=== PATIENT | male | born 1950 | race Caucasian/White ===

== ENCOUNTER 2021-12-10 04:27 | Day surgery (SDC) | payer OTHER ==
[2021-12-07 12:54] VITALS: BMI 24.3
[2021-12-10 15:08] VITALS: BP 140/80; PULSE 54; TEMP 97.7
== END 2021-12-10 15:10 | disposition home or self-care (01) ==
LOC: JASU-SURG 04:27
PROVIDERS: ATTEND Urology
PROC: 0TF4XZZ Fragmentation in Left Kidney Pelvis, External Approach (ICD-10-PCS; principal; 2021-12-10 13:00)
DX: N20.0 Calculus of kidney (principal)

== ENCOUNTER 2022-05-13 03:50 | Day surgery (SDC) | payer OTHER ==
[2022-05-10 16:04] VITALS: BMI 25.4
[2022-05-13] MEDS ORDERED: MIDAZOLAM HCL 2 MG/2 ML SINGLE DOSE VIAL ONE (12:10)
[2022-05-13] MEDS ORDERED: PROPOFOL 20 ML ONE ×2 (12:10→15:05)
[2022-05-13 13:41] VITALS: BP 129/66; PULSE 58; RESP 18; TEMP 98.4
== END 2022-05-13 13:40 | disposition home or self-care (01) ==
LOC: JASU-SURG 03:50
PROVIDERS: ATTEND Urology
PROC: 0TF3XZZ Fragmentation in Right Kidney Pelvis, External Approach (ICD-10-PCS; principal; 2022-05-13 11:30)
DX: N20.0 Calculus of kidney (principal)

== ENCOUNTER 2022-05-30 04:27 | Day surgery (SDC) | payer OTHER ==
[2022-05-28 14:05] VITALS: BMI 24.9
[2022-05-30 11:54] VITALS: BP 103/65; PULSE 51; RESP 17; TEMP 98
== END 2022-05-30 11:54 | disposition home or self-care (01) ==
LOC: JASU-ENDO 04:27
PROVIDERS: ATTEND Internal Medicine Gastroenterology
PROC: 0DB78ZX Excision of Stomach, Pylorus, Via Natural or Artificial Opening Endoscopic, Diagnostic (ICD-10-PCS; 2022-05-30)
PROC: 0DB68ZX Excision of Stomach, Via Natural or Artificial Opening Endoscopic, Diagnostic (ICD-10-PCS; 2022-05-30)
PROC: 0DB98ZX Excision of Duodenum, Via Natural or Artificial Opening Endoscopic, Diagnostic (ICD-10-PCS; principal; 2022-05-30 10:00)
DX: K29.50 Unspecified chronic gastritis without bleeding (principal); K31.7 Polyp of stomach and duodenum; I10 Essential (primary) hypertension
CPT/HCPCS: 88305-TC; 88342-TC

== ENCOUNTER 2022-12-10 04:49 | Day surgery (SDC) | payer OTHER ==
[2022-12-04 15:37] VITALS: BMI 25.7
[2022-12-10 09:48] VITALS: TEMP 97.5
[2022-12-10 09:49] VITALS: RESP 17
[2022-12-10 09:52] VITALS: BP 105/63; PULSE 60
== END 2022-12-10 09:50 | disposition home or self-care (01) ==
LOC: JASU-ENDO 04:49
PROVIDERS: ATTEND Internal Medicine Gastroenterology
PROC: 0DBK8ZX Excision of Ascending Colon, Via Natural or Artificial Opening Endoscopic, Diagnostic (ICD-10-PCS; principal; 2022-12-10 08:30)
DX: D12.2 Benign neoplasm of ascending colon (principal); K64.8 Other hemorrhoids; K57.30 Diverticulosis of large intestine without perforation or abscess without bleeding
CPT/HCPCS: 88305-TC